=== PATIENT | male | born 1970 | race Caucasian/White ===

== ENCOUNTER 2020-12-04 06:24 | Inpatient (IN) | payer SELFPAY ==
[2020-12-04] VITALS (10 sets, daily range): BP systolic 140–167; BP diastolic 53–110; PULSE 71–90; RESP 14–20; TEMP 36.6–37.2; O2SAT 97–100; BMI 33.0
--- NOTE | ~2020-12-04 | CT_ITS ---
EXAMINATION: CT abdomen pelvis w con DATE: 12/04/2020 08:14 INDICATION: Generalized abdominal pain. TECHNIQUE: Computed tomography (CT) of the abdomen and pelvis was performed with 100 mL Omnipaque 350 intravenous contrast. Automated exposure control and iterative reconstruction technique were employe d. The dose-length product was 1074.57 mGy-cm. COMPARISON: None. FINDINGS: The visualized portions of the lung bases are clear without pneumonia or pleural effusion. The heart size is normal. No pericardial effusion. The liver, gallbladder, spleen, adrenal glands, an d right kidney are normal. There is a 13 mm cyst in left kidney. There is fat stranding around the ta il of the pancreas, consistent with acute interstitial pancreatitis. There are no dilated loops of jacek wel. The appendix is normal. There is a left inguinal hernia containing fat. There are no pathologica lly enlarged lymph nodes. There is no free intraperitoneal fluid. There is severe lower lumbar spondy losis. There is mild thoracic spondylosis. There is mild chronic anterior wedging of multiple lower t horacic vertebral bodies. IMPRESSION: 1. Acute interstitial pancreatitis. 2. Left inguinal hernia containing fat. Reviewed, dictated and finalized at location D.
[2020-12-04 07:05] LABS: Basophils Percent Auto 0.1 % (0.2-1.2); Eosinophils Absolute Auto 0.1 K/mm3 (0-0.3); Eosinophils Percent Auto 0.7 % (0-4.4); Hematocrit 44.3 % (42.0-52.0); Hemoglobin 15.2 g/dL (14.0-18.0); Immature Granulocyte Absolute 0.04 K/mm3 (0.00-0.031); Immature Granulocyte Percent A 0.3 % (0-0.5); Lymphocytes Absolute Auto 1.03 K/mm3 (0.9-3.2); Mean Corpuscular HGB Conc 34.3 g/dl (32-36); Mean Corpuscular Hemoglobin 30.6 pg (26-34); Mean Corpuscular Volume 89.3 fl (80-100); Mean Platelet Volume 8.6 fl (7.4-10.4); Monocytes Absolute Auto 0.9 K/mm3 (0.1-0.6); Monocytes Percent Auto 7.4 % (2.6-8.5); Neutrophils Absolute Auto 9.5 K/mm3 (1.3-6.7); Neutrophils Percent Auto 82.5 % (45.5-73.1); Platelet Count Result 287 k/mm3 (150-375); Red Blood Count 4.96 M/mm3 (4.6-6.20); Red Cell Distribution Width 12.4 % (11.5-14.5); White Blood Count 11.5 K/mm3 (4.5-10.0)
--- NOTE | 2020-12-04 07:07 | ED.ABDPAIN ---
HPI - Abdominal Pain General Chief Complaint: Abdominal Pain Stated Complaint: abd pain/bloating Time Seen by Provider: 12/04/20 07:00 History of Present Illness HPI narrative: 50 yop male w/ no known medical history presents to the ED c/o Abdominal pain. He has had moderate generalized abdominal pain since yesterday. Worse overnight. Associated with nausea and bloating. He reports a few loose stools yesterday. No prior surgeries. He does not drink alcohol. Related Data Allergies Allergy/AdvReac Type Severity Reaction Status Date / Time No Known Allergies Allergy Verified 12/04/20 06:48 Review of Systems Review of Systems: All systems reviewed & are unremarkable except as noted in HPI and below Constitutional: Constitutional: Denies fever(s) Cardiovascular: Cardiovascular: Denies chest pain Respiratory: Respiratory: Denies dyspnea Genitourinary: Genitourinary: Denies hematuria and Denies dysuria Neurologic: Denies dizziness and Denies weakness [facility] Social History Social History (Updated 12/04/20 @ 10:49 by Jose Cruz Garrett MD) Smoking status: Never smoker Alcohol intake: never Exam Const: General: no acute distress and alert Orientation/consciousness: patient oriented x3 HENMT: Head: normal to inspection Neck: Neck: normal visual inspection Chest: Chest palpation & inspection: no tenderness Resp: Effort & Inspection: normal respiratory effort Auscultation: clear to auscultation bilaterally, no rales, no rhonchi and no wheezes Cardio: Jugular venous distension: no JVD Rate: regular rate Rhythm: regular rhythm Heart sounds: no murmurs GI: Inspection: non-distended GI Palp: Yes Soft to palpation, Yes Tenderness to palpation present (GI) (diffuse, mild), No Guarding due to palpation present (GI) and No Rebound tenderness present Skin: General skin exam: normal color Neuro: General: patient oriented x3 and moves all extremities Speech: normal speech Extrem: General: normal to inspection and no edema Psych: Appearance: well kempt Affect: normal affect Course Vital Signs Vital signs: Vital Signs Temperature 36.9 C 12/04/20 06:36 Pulse Rate 82 12/04/20 06:36 Respiratory Rate 16 12/04/20 06:36 Blood Pressure 155/110 H 12/04/20 06:36 Pulse Oximetry 97 12/04/20 06:36 Temperature 36.9 C 12/04/20 06:36 Pulse Rate 71 12/04/20 09:50 Respiratory Rate 20 12/04/20 09:50 Blood Pressure 157/106 H 12/04/20 09:50 Pulse Oximetry 100 12/04/20 09:50 MDM - Abdominal Pain MDM Narrative Medical decision making narrative: Acute pancreatitis on CT. Lipase normal. Denies alcohol use. Triglycerides normal. Dr. Aparicio will admit. Differential Diagnosis Differential diagnosis: Likely acute appendicitis, constipation, diverticulitis and pancreatitis Medical Records Attestation: I reviewed the patient's medical records. Lab Data Attestation: I reviewed the patient's lab results. Result diagrams: 12/04/20 06:58 12/04/20 06:58 Labs: Lab Results 12/04/20 12/04/20 12/04/20 Range/Units 06:58 06:58 06:58 WBC 11.5 H (4.5-10.0) K/mm3 RBC 4.96 (4.6-6.20) M/mm3 Hgb 15.2 (14.0-18.0) g/dL Hct 44.3 (42.0-52.0) % MCV 89.3 (80-100) fl MCH 30.6 (26-34) pg MCHC 34.3 (32-36) g/dl RDW 12.4 (11.5-14.5) % Plt Count 287 (150-375) k/mm3 MPV 8.6 (7.4-10.4) fl Immature Gran % (Auto) 0.3 (0-0.5) % Neut % (Auto) 82.5 H (45.5-73.1) % Lymph % (Auto) 9.0 L (18.3-44.2) % [place] % (Auto) 7.4 (2.6-8.5) % Eos % (Auto) 0.7 (0-4.4) % Baso % (Auto) 0.1 L (0.2-1.2) % Lymph # (Auto) 1.03 (0.9-3.2) K/mm3 [place] # (Auto) 0.9 H (0.1-0.6) K/mm3 Eos # (Auto) 0.1 (0-0.3) K/mm3 Baso # (Auto) 0.0 (0.0-0.1) K/mm3 Abs Immat Gran (auto) 0.04 H (0.00-0.031) K/mm3 Absolute Neuts (auto) 9.5 H (1.3-6.7) K/mm3 Absolute Nucleated RBC 0.0 (0.0-0.012) K/mm3 Nucleated RBC % 0
[2020-12-04 07:21] LABS: Alanine Aminotransferase 30 U/L (4-50); Albumin Level 4.2 g/dL (3.5-5.1); Alkaline Phosphatase 90 U/L (38-126); Anion Gap 7 mmol/L (8-16); Aspartate Amino Transferase 26 U/L (17-59); Bilirubin,Total 0.7 mg/dL (0.2-1.3); Blood Urea Nitrogen 14 mg/dL (9-20); Calcium 9.2 mg/dL (8.4-10.2); Carbon Dioxide 26 mmol/L (22-30); Chloride 106 mmol/L (98-107); Estimated CRCL calculation 114 ml/min; Estimated Glomerular Filt Rate > 60; Glucose 128 mg/dL (65-110); Lipase 181 U/L (23-300); Potassium 3.6 mmol/L (3.4-5.0); Sodium 139 mmol/L (137-145)
[2020-12-04 07:28] LABS: Add Urine Microscopic? YES; Appearance Urine Clear (Clear); Bilirubin Urine Negative (Negative); Blood Urine Negative (Negative); Color Urine Yellow (Yellow); Glucose Urine UA Negative (Negative); Ketones Urine Negative (Negative); Leukocyte Esterase Ur Negative LEU/UL (Negative); Nitrate Urine Negative (Negative); Protein Urine 1+ mg/dL (Negative); RBC Urine 0-2 /hpf (0-2); Urobilinogen Urine Negative mg/dL (<2.0); WBC Urine 0-3 /hpf
[2020-12-04 07:37] LABS: Specific Grav Ur 1.032 (1.001-1.035)
[2020-12-04 10:27] LABS: Cholesterol 185 mg/dL (0-200); HDL Direct 35 mg/dL; Triglycerides 110 mg/dL (<150)
[2020-12-04 10:38] LABS: LDL Cholesterol Direct 103 mg/dL
--- NOTE | 2020-12-04 11:45 | ADMGEN ---
This patient, Sudhakar Jefferson, was admitted to [facility] Surg Room 311-01. Patient/family oriented to hospital policies and general routines including ID bracelet, bed and alarms, visiting hours, pain management, procedures, bathroom and other care routines, personal items, smoking policy, room service/diet, and visiting hours. Information on how to activate the Rapid Response Team has been discussed. Patient/Family are encouraged to report perceived risks to care and to ask questions if they do not understand what they are told or what they should do.
[2020-12-04] MEDS: SODIUM CHLORIDE 0.9% IV 1,000 ML 200 ML IV CONT ×2 (12:29→18:36)
--- NOTE | 2020-12-04 13:25 | PM.IMHP ---
H&P: HPI History of Present Illness Date/Time: 12/04/20 13:25 Chief Complaint: Abdominal pain. Narrative: This is a 50-year-old male, reportedly healthy however he has not seen a physician for quite some time, who presented to the emergency department earlier today via private vehicle from home for evaluation of abdominal pain. He developed pressure-like at times aching discomfort in his upper abdomen sometime yesterday which he originally attributed to constipation however he had a loose bowel movement yesterday afternoon. He has since started having loose stools. The pain does not radiate aside from somewhat up into the left upper quadrant. He gives no significant aggravating or alleviating factors. In addition to the abdominal discomfort he has had sweats and nausea. CT of the abdomen and pelvis showed acute interstitial pancreatitis and he is being admitted in this setting. He has no prior history of pancreatitis. He has no known history of gallstones or high triglycerides. He does not drink alcohol. No family history of pancreatitis. Review of Systems Review of Systems: 12 systems were reviewed with pertinent positives and negatives as per HPI. He has not had a fever. No recent cold or flu symptoms. He has some rhinorrhea secondary to seasonal rhinitis. He denies chest pain or shortness of breath. No vomiting. No melena or hematochezia. No mucus in the stool. Except as documented, all other systems were reviewed and are negative. [facility] Past Medical History Medical History No significant past medical history Surgical History Surgical History No history of previous surgery Family History Family History (Updated 12/04/20 @ 23:45 by Tyesha Travis PA-C) Other No significant family history Social History Social History (Updated 12/04/20 @ 23:46 by Tyesha Travis PA-C) Social History: The patient lives in [place]. Works at [employer]. Lifelong nonsmoker. No alcohol or illicit substance abuse. Surrogate decision maker: Mejia Jefferson, father. Code status: Full code. Meds Home Medications and Allergies Home Medications Medication Instructions Recorded Confirmed Type fexofenadine-pseudoephedrine 1 tablet PO QAM PRN 12/04/20 12/04/20 History [Jessie-D 24 Hour] Allergies Allergy/AdvReac Type Severity Reaction Status Date / Time codeine AdvReac Nausea Verified 12/04/20 12:15 Vital Signs Vital Signs - 24 hr 12/04/20 06:36 12/04/20 07:31 12/04/20 08:52 Temperature 98.5 F Pulse Rate 82 74 81 Respiratory Rate 16 20 20 Blood Pressure 155/110 H 158/104 H 167/104 H Pulse Oximetry 97 98 100 12/04/20 09:50 12/04/20 11:14 12/04/20 13:15 Temperature 97.8 F Pulse Rate 71 74 76 Respiratory Rate 20 20 14 Blood Pressure 157/106 H 153/99 H 157/108 H Pulse Oximetry 100 98 98 Exam Narrative: General: Moderately ill-appearing male supine in bed. Weight: 113.5 kg. BMI: 33.0. HEENT: Normocephalic, atraumatic. PERRL, EOMI. Sclerae anicteric. Tacky mucous membranes. Neck: Supple. Respiratory: Lungs are clear to auscultation bilaterally. Cardiovascular: Regular rate and rhythm with S1-S2. Gastrointestinal: Abdomen is soft and nondistended with positive bowel sounds. He is tender to palpation in the left upper quadrant. No voluntary guarding or rebound tenderness peer Skin: Warm and slightly diaphoretic. Extremities: No cyanosis, clubbing, or edema. Radial and pedal pulses intact. Neurological: Alert. Cranial nerves 2-12 are grossly intact. Speech is clear. No facial asymmetry. No gross focal deficits to casual conversation. Psychiatric: Appropriate mood and affect. H&P: Results Labs Labs: Short CBC 12/04/20 Range/Units 06:58 WBC 11.5 H (4.5-10.0) K/mm3 Hgb 15.2 (14.0-18.0) g/dL Hct 44.3 (42.0-52.0) % Plt Count 287 (150-375
[2020-12-04] MEDS: ONDANSETRON INJ 4 MG/2 ML VIAL IV PUSH ×2 (14:48→23:18)
[2020-12-04] MEDS: MORPHINE SULFATE (*CRX) 4 MG/ML INJ IV PUSH ×2 (16:41→20:20)
[2020-12-04] MEDS: amLODIPine BESYLATE 5 MG TABLET PO (16:42)
[2020-12-04 18:58] LABS: Hemoglobin A1C 5.6 % (<5.7)
[2020-12-04] MEDS: LORATADINE/PSEUDOEPHEDRINE (*CRX) 10/240 MG TABLET ER 24 HR 1 TAB PO (23:17)
[2020-12-05] MEDS: SODIUM CHLORIDE 0.9% IV 1,000 ML 200 ML IV CONT ×2 (01:05→06:56)
[2020-12-05 06:00] VITALS: BP 150/95; PULSE 84; RESP 20; TEMP 37.5; O2SAT 98
[2020-12-05 06:57] LABS: Hemoglobin 13.8 g/dL (14.0-18.0); Mean Corpuscular HGB Conc 34.5 g/dl (32-36); Mean Corpuscular Hemoglobin 30.5 pg (26-34); Mean Corpuscular Volume 88.5 fl (80-100); Mean Platelet Volume 8.8 fl (7.4-10.4); Platelet Count Result 278 k/mm3 (150-375); Red Blood Count 4.52 M/mm3 (4.6-6.20); Red Cell Distribution Width 12.4 % (11.5-14.5); White Blood Count 12.5 K/mm3 (4.5-10.0)
[2020-12-05 07:15] LABS: Alanine Aminotransferase 24 U/L (4-50); Albumin Level 3.7 g/dL (3.5-5.1); Alkaline Phosphatase 79 U/L (38-126); Anion Gap 8 mmol/L (8-16); Aspartate Amino Transferase 19 U/L (17-59); Bilirubin,Total 1.2 mg/dL (0.2-1.3); Blood Urea Nitrogen 8 mg/dL (9-20); Calcium 8.6 mg/dL (8.4-10.2); Carbon Dioxide 23 mmol/L (22-30); Chloride 105 mmol/L (98-107); Estimated CRCL calculation 128 ml/min; Estimated Glomerular Filt Rate > 60; Glucose 108 mg/dL (65-110); Lipase 39 U/L (23-300); Magnesium 1.8 mg/dL (1.6-2.3); Potassium 3.8 mmol/L (3.4-5.0); Sodium 136 mmol/L (137-145)
[2020-12-05] MEDS: amLODIPine BESYLATE 5 MG TABLET PO (09:22)
--- NOTE | 2020-12-05 11:22 | PM.IMPN ---
Progress Note: A&P Assessment and Plan (1) Acute pancreatitis: Code(s): K85.90 - Acute pancreatitis without necrosis or infection, unspecified Status: Acute Assessment and Plan: Precipitating etiology unclear as he is on no medication (aside from occasional Jessie) and denies drinking alcohol recently. Gallbladder was unremarkable on imaging. Triglycerides were 110. Continue bowel rest and IV fluid rehydration. Analgesics available as needed. If his symptoms continue to improve will initiate clear liquid diet (2) Elevated blood pressure reading: Code(s): R03.0 - Elevated blood-pressure reading, without diagnosis of hypertension Status: Acute Assessment and Plan: Increase amlodipine to 10 mg daily. (3) Elevated random blood glucose level: Code(s): R73.09 - Other abnormal glucose Status: Acute Assessment and Plan: Hemoglobin A1c 5.6, outpatient periodic monitoring (4) Left inguinal hernia: Code(s): K40.90 - Unilateral inguinal hernia, without obstruction or gangrene, not specified as recurrent Status: Acute Assessment and Plan: Incidental finding on imaging. No acute issues. Unknown to the patient prior to today. We discussed possible complications and what he should do should he start having pain. Subjective Date/time seen: 12/05/20 11:22 Persistent abdominal pain but slightly improved. Hemodynamically stable. Afebrile. No N/V. Exam Narrative: Gen: Alert, NAD Abd: Soft, mild diffuse TTP Heart: RRR Lungs: CTAB Ext: No lower extremity edema Objective Data Vital Signs Vital Signs: Vital Signs - 24 hr 12/04/20 13:15 12/04/20 13:43 12/04/20 14:00 Temperature 97.8 F 98.4 F Pulse Rate 76 80 Respiratory Rate 14 14 Blood Pressure 157/108 H 157/108 H 165/110 H Pulse Oximetry 98 99 12/04/20 20:00 12/04/20 22:00 12/05/20 06:00 Temperature 98.9 F 99.5 F Pulse Rate 90 90 84 Respiratory Rate 20 20 20 Blood Pressure 140/53 L 150/95 H Pulse Oximetry 97 97 98 Intake/Output Intake/Output: Intake & Output 12/02/20 12/03/20 12/04/20 12/05/20 23:59 23:59 23:59 23:59 Intake Total 1340 1999 Balance 1340 1999 Meds/Results Medications: Active Medications Generic Name Dose Route Start Last Admin Trade Name Freq PRN Reason Stop Dose Admin Amlodipine Besylate 5 mg 12/04/20 15:45 12/05/20 09:22 Amlodipine Besylate 5 Mg Tablet PO 5 mg QAM EDWARD Administration Dextrose 12.5 gm 12/04/20 13:33 Dextrose 50% 25 Gm/50 Ml Syringe IV PUSH PRN PRN Hypoglycemia Protocol Glucagon 1 mg 12/04/20 13:33 Glucagon For Inj 1 Mg Vial IM PRN PRN Hypoglycemia Protocol Glucose 15 gm 12/04/20 13:33 Glucose Oral Gel 15 Gm Of Glucse In 37.5 Gm Tube PO PRN PRN Hypoglycemia Protocol Sodium Chloride 1,000 mls @ 200 mls/hr 12/04/20 10:05 12/05/20 06:56 Normal Saline Iv IV CONT 200 mls/hr .Q5H EDWARD Administration Dextrose 1,000 mls @ 100 mls/hr 12/04/20 13:33 Dextrose 5% 1,000 Ml IVPB PRN PRN Hypoglycemia Protocol Loratadine/Pseudoephedrine Sulfate 1 tab 12/04/20 22:32 12/04/20 23:17 Loratadine/Pseudoephedrine (*Crx) 10/240 Mg Tablet Er 24 Hr PO 1 tab QAM PRN Administration allergies Morphine Sulfate 4 mg 12/04/20 10:05 12/04/20 20:20 Morphine Sulfate (*Crx) 4 Mg/Ml Inj IV PUSH 4 mg Q2H PRN Administration Pain Rated 7-10 Ondansetron HCl 4 mg 12/04/20 10:05 12/04/20 23:18 Ondansetron Inj 4 Mg/2 Ml Vial IV PUSH 4 mg Q4H PRN Administration Nausea Radiology Results: ITS Impressions Abdomen/Pelvis CT 12/04/20 08:15 IMPRESSION: 1. Acute interstitial pancreatitis. 2. Left inguinal hernia containing fat. Labs Labs: Laboratory Results - last 24 hr 12/04/20 12/05/20 12/05/20 14:24 06:30 06:30 WBC 12.5 H RBC 4.52 L Hgb 13.8 L Hct 40.0 L MCV 88.5 MCH
[2020-12-05] MEDS: ACETAMINOPHEN 325 MG TABLET 650 MG PO (13:25)
[2020-12-05 14:00] VITALS: BP 164/108; PULSE 81; RESP 18; TEMP 37.1; O2SAT 100
[2020-12-05] MEDS: SODIUM CHLORIDE 0.9% IV 1,000 ML 100 ML IV CONT (17:03)
[2020-12-05 17:33] VITALS: O2SAT 94
[2020-12-05 20:00] VITALS: PULSE 83; RESP 18; O2SAT 98
[2020-12-05 22:00] VITALS: BP 146/95; PULSE 83; RESP 18; TEMP 36.6; O2SAT 98
[2020-12-06] MEDS: SODIUM CHLORIDE 0.9% IV 1,000 ML 100 ML IV CONT (03:57)
[2020-12-06 05:39] VITALS: BP 149/94; PULSE 73; RESP 18; TEMP 36.6; O2SAT 99
[2020-12-06 08:11] LABS: Anion Gap 8 mmol/L (8-16); Blood Urea Nitrogen 8 mg/dL (9-20); Carbon Dioxide 25 mmol/L (22-30); Chloride 103 mmol/L (98-107); Estimated CRCL calculation 115 ml/min; Estimated Glomerular Filt Rate > 60; Glucose 99 mg/dL (65-110); Potassium 3.8 mmol/L (3.4-5.0); Sodium 136 mmol/L (137-145)
[2020-12-06] MEDS: amLODIPine BESYLATE 5 MG TABLET 10 MG PO (08:12)
--- NOTE | 2020-12-06 12:56 | PM.IMPN ---
Progress Note: A&P Assessment and Plan (1) Acute pancreatitis: Code(s): K85.90 - Acute pancreatitis without necrosis or infection, unspecified Status: Acute Assessment and Plan: Precipitating etiology unclear as he is on no medication (aside from occasional Jessie) and denies drinking alcohol recently. Gallbladder was unremarkable on imaging. Triglycerides were 110. Analgesics as needed. Full liquid diet today and advance as tolerated D/C IVF as his intake is increasing (2) Elevated blood pressure reading: Code(s): R03.0 - Elevated blood-pressure reading, without diagnosis of hypertension Status: Acute Assessment and Plan: Increase amlodipine to 10 mg daily, monitor (3) Elevated random blood glucose level: Code(s): R73.09 - Other abnormal glucose Status: Acute Assessment and Plan: Hemoglobin A1c 5.6, outpatient periodic monitoring (4) Left inguinal hernia: Code(s): K40.90 - Unilateral inguinal hernia, without obstruction or gangrene, not specified as recurrent Status: Acute Assessment and Plan: Incidental finding on imaging. No acute issues. Unknown to the patient prior to today. We discussed possible complications and what he should do should he start having pain. Subjective Date/time seen: 12/06/20 12:56 Feels better this AM. Reports no N/V overnight. Abdominal pain is improved. Has tolerated clear liquids well. Review of Systems Review of Systems: All systems reviewed & are unremarkable except as noted in HPI and below Exam Narrative: Gen: Alert, NAD Abd: Soft, NT, ND Heart: RRR Lungs: CTAB Ext: No lower extremity edema Objective Data Vital Signs Vital Signs: Vital Signs - 24 hr 12/05/20 14:00 12/05/20 17:33 12/05/20 20:00 Temperature 98.7 F Pulse Rate 81 83 Respiratory Rate 18 18 Blood Pressure 164/108 H Pulse Oximetry 100 94 98 12/05/20 22:00 12/06/20 05:39 Temperature 97.8 F 97.8 F Pulse Rate 83 73 Respiratory Rate 18 18 Blood Pressure 146/95 H 149/94 H Pulse Oximetry 98 99 Intake/Output Intake/Output: Intake & Output 12/03/20 12/04/20 12/05/20 12/06/20 23:59 23:59 23:59 23:59 Intake Total 1340 4200 2080 Balance 1340 4200 2080 Meds/Results Medications: Active Medications Generic Name Dose Route Start Last Admin Trade Name Freq PRN Reason Stop Dose Admin Acetaminophen 650 mg 12/05/20 12:32 12/05/20 13:25 Acetaminophen 325 Mg Tablet PO 650 mg Q6H PRN Administration Mild Pain (1-3) or Fever Amlodipine Besylate 10 mg 12/06/20 09:00 12/06/20 08:12 Amlodipine Besylate 5 Mg Tablet PO 10 mg QAM EDWARD Administration Dextrose 12.5 gm 12/04/20 13:33 Dextrose 50% 25 Gm/50 Ml Syringe IV PUSH PRN PRN Hypoglycemia Protocol Enoxaparin Sodium 40 mg 12/06/20 09:00 12/06/20 08:14 Enoxaparin 40 Mg/0.4 Ml Syringe SUB-Q Not Given DAILY EDWARD Glucagon 1 mg 12/04/20 13:33 Glucagon For Inj 1 Mg Vial IM PRN PRN Hypoglycemia Protocol Glucose 15 gm 12/04/20 13:33 Glucose Oral Gel 15 Gm Of Glucse In 37.5 Gm Tube PO PRN PRN Hypoglycemia Protocol Sodium Chloride 1,000 mls @ 100 mls/hr 12/04/20 10:05 12/06/20 03:57 Normal Saline Iv IV CONT 100 mls/hr .Q10H EDWARD Administration Dextrose 1,000 mls @ 100 mls/hr 12/04/20 13:33 Dextrose 5% 1,000 Ml IVPB PRN PRN Hypoglycemia Protocol Loratadine/Pseudoephedrine Sulfate 1 tab 12/04/20 22:32 12/04/20 23:17 Loratadine/Pseudoephedrine (*Crx) 10/240 Mg Tablet Er 24 Hr PO 1 tab QAM PRN Administration allergies Morphine Sulfate 4 mg 12/04/20 10:05 12/04/20 20:20 Morphine Sulfate (*Crx) 4 Mg/Ml Inj IV PUSH 4 mg Q2H PRN Administration Pain Rated 7-10 Ondansetron HCl 4 mg 12/04/20 10:05 12/04/20 23:18 Ondansetron Inj 4 Mg/2 Ml Vial IV PUSH 4 mg Q4H PRN Administration Nausea Radiology R
[2020-12-06 15:06] VITALS: BP 126/91; PULSE 86; RESP 14; TEMP 37.1; O2SAT 98
[2020-12-06 20:00] VITALS: PULSE 73; RESP 18; O2SAT 100
[2020-12-06 21:55] VITALS: BP 141/101; PULSE 78; RESP 18; TEMP 36.2; O2SAT 98
[2020-12-07 06:00] VITALS: BP 126/81; PULSE 73; RESP 18; TEMP 36.3; O2SAT 100
[2020-12-07 06:57] LABS: Hematocrit 43.7 % (42.0-52.0); Hemoglobin 15.2 g/dL (14.0-18.0); Mean Corpuscular HGB Conc 34.8 g/dl (32-36); Mean Corpuscular Hemoglobin 30.5 pg (26-34); Mean Corpuscular Volume 87.8 fl (80-100); Mean Platelet Volume 8.8 fl (7.4-10.4); Platelet Count Result 334 k/mm3 (150-375); Red Blood Count 4.98 M/mm3 (4.6-6.20); Red Cell Distribution Width 12.3 % (11.5-14.5); White Blood Count 7.3 K/mm3 (4.5-10.0)
[2020-12-07 07:16] LABS: Anion Gap 9 mmol/L (8-16); Blood Urea Nitrogen 10 mg/dL (9-20); Calcium 9.5 mg/dL (8.4-10.2); Carbon Dioxide 27 mmol/L (22-30); Chloride 101 mmol/L (98-107); Estimated CRCL calculation 104 ml/min; Estimated Glomerular Filt Rate > 60; Glucose 94 mg/dL (65-110); Potassium 4.5 mmol/L (3.4-5.0); Sodium 137 mmol/L (137-145)
[2020-12-07] MEDS: amLODIPine BESYLATE 5 MG TABLET 10 MG PO (08:57)
[2020-12-07 09:00] VITALS: PULSE 74; RESP 18; O2SAT 100
--- NOTE | 2020-12-07 10:51 | PM.IMPN ---
Progress Note: A&P Assessment and Plan (1) Acute pancreatitis: Code(s): K85.90 - Acute pancreatitis without necrosis or infection, unspecified Status: Acute Assessment and Plan: Precipitating etiology unclear as he is on no medication (aside from occasional Jessie) and denies drinking alcohol recently. Gallbladder was unremarkable on imaging. Triglycerides were 110. Analgesics as needed. Continue advancing diet, may be able to tolerate solids this afternoon. (2) Elevated blood pressure reading: Code(s): R03.0 - Elevated blood-pressure reading, without diagnosis of hypertension Status: Acute Assessment and Plan: Will continue with amlodipine 10 daily. (3) Left inguinal hernia: Code(s): K40.90 - Unilateral inguinal hernia, without obstruction or gangrene, not specified as recurrent Status: Acute Assessment and Plan: Incidental finding on imaging. No acute issues. Unknown to the patient prior to this visit. He does state that he has some pain in the left abdomen with stretching or heavy exertion, may be related to hernia. No signs of strangulation, unlikely be addressed as outpatient with elective surgery. Continue to monitor for alarming symptoms. Subjective Date/time seen: 12/07/20 10:51 Interval history: no acute distress, ambulating in room, tolerating clear liquid diet, n nausea or vomiting Review of Systems Review of Systems: All systems reviewed & are unremarkable except as noted in HPI and below Exam Const: General: no acute distress Neck: Neck: no JVD Resp: Effort & Inspection: normal respiratory effort Auscultation: clear to auscultation bilaterally Cardio: Rate: regular rate Rhythm: regular rhythm GI: Inspection: non-distended GI Palp: Yes Soft to palpation, No Firmness to palpation present (GI), No Tenderness to palpation present (GI) and No Guarding due to palpation present (GI) Auscultation: normal bowel sounds Neuro: General: gait normal Speech: normal speech Objective Data Vital Signs Vital Signs: Vital Signs - 24 hr 12/06/20 15:06 12/06/20 20:00 12/06/20 21:55 Temperature 98.8 F 97.1 F L Pulse Rate 86 73 78 Respiratory Rate 14 18 18 Blood Pressure 126/91 H 141/101 H Pulse Oximetry 98 100 98 12/07/20 06:00 Temperature 97.4 F L Pulse Rate 73 Respiratory Rate 18 Blood Pressure 126/81 Pulse Oximetry 100 Intake/Output Intake/Output: Intake & Output 12/04/20 12/05/20 12/06/20 12/07/20 23:59 23:59 23:59 23:59 Intake Total 1340 4200 4310 750 Balance 1340 4200 4310 750 Meds/Results Medications: Active Medications Generic Name Dose Route Start Last Admin Trade Name Freq PRN Reason Stop Dose Admin Acetaminophen 650 mg 12/05/20 12:32 12/05/20 13:25 Acetaminophen 325 Mg Tablet PO 650 mg Q6H PRN Administration Mild Pain (1-3) or Fever Amlodipine Besylate 10 mg 12/06/20 09:00 12/07/20 08:57 Amlodipine Besylate 5 Mg Tablet PO 10 mg QAM EDWARD Administration Dextrose 12.5 gm 12/04/20 13:33 Dextrose 50% 25 Gm/50 Ml Syringe IV PUSH PRN PRN Hypoglycemia Protocol Enoxaparin Sodium 40 mg 12/06/20 09:00 12/07/20 08:59 Enoxaparin 40 Mg/0.4 Ml Syringe SUB-Q Not Given DAILY EDWARD Glucagon 1 mg 12/04/20 13:33 Glucagon For Inj 1 Mg Vial IM PRN PRN Hypoglycemia Protocol Glucose 15 gm 12/04/20 13:33 Glucose Oral Gel 15 Gm Of Glucse In 37.5 Gm Tube PO PRN PRN Hypoglycemia Protocol Dextrose 1,000 mls @ 100 mls/hr 12/04/20 13:33 Dextrose 5% 1,000 Ml IVPB PRN PRN Hypoglycemia Protocol Loratadine/Pseudoephedrine Sulfate 1 tab 12/04/20 22:32 12/04/20 23:17 Loratadine/Pseudoephedrine (*Crx) 10/240 Mg Tablet Er 24 Hr PO 1 tab QAM PRN Administration allergies Morphine Sulfate 4 mg 12/04/20 10:05 12/04/20 20:20 Morphine Sulfate (*Crx) 4 Mg/Ml Inj IV PUSH 4 mg Q2H PRN Administration
[2020-12-07 14:00] VITALS: BP 149/97; PULSE 74; RESP 18; TEMP 36.9; O2SAT 100
[2020-12-07 20:00] VITALS: O2SAT 100
[2020-12-07 22:00] VITALS: BP 149/97; PULSE 70; RESP 20; TEMP 36.8; O2SAT 97
[2020-12-08 06:00] VITALS: BP 138/84; PULSE 74; RESP 20; TEMP 36.8; O2SAT 100
[2020-12-08 06:52] LABS: Basophils Percent Auto 0.3 % (0.2-1.2); Eosinophils Absolute Auto 0.3 K/mm3 (0-0.3); Eosinophils Percent Auto 4.6 % (0-4.4); Hematocrit 43.3 % (42.0-52.0); Hemoglobin 15.2 g/dL (14.0-18.0); Immature Granulocyte Absolute 0.02 K/mm3 (0.00-0.031); Immature Granulocyte Percent A 0.3 % (0-0.5); Lymphocytes Percent Auto 18.9 % (18.3-44.2); Mean Corpuscular HGB Conc 35.1 g/dl (32-36); Mean Corpuscular Hemoglobin 30.6 pg (26-34); Mean Corpuscular Volume 87.3 fl (80-100); Monocytes Absolute Auto 0.6 K/mm3 (0.1-0.6); Monocytes Percent Auto 10.3 % (2.6-8.5); Neutrophils Absolute Auto 3.8 K/mm3 (1.3-6.7); Neutrophils Percent Auto 65.6 % (45.5-73.1); Platelet Count Result 347 k/mm3 (150-375); Red Blood Count 4.96 M/mm3 (4.6-6.20); Red Cell Distribution Width 12.2 % (11.5-14.5); White Blood Count 5.8 K/mm3 (4.5-10.0)
[2020-12-08 07:20] LABS: Alanine Aminotransferase 29 U/L (4-50); Alkaline Phosphatase 79 U/L (38-126); Anion Gap 6 mmol/L (8-16); Aspartate Amino Transferase 26 U/L (17-59); Bilirubin,Total 0.8 mg/dL (0.2-1.3); Blood Urea Nitrogen 14 mg/dL (9-20); Calcium 9.2 mg/dL (8.4-10.2); Carbon Dioxide 26 mmol/L (22-30); Chloride 107 mmol/L (98-107); Estimated CRCL calculation 103 ml/min; Estimated Glomerular Filt Rate > 60; Glucose 103 mg/dL (65-110); Magnesium 2.2 mg/dL (1.6-2.3); Phosphorus 3.7 mg/dL (2.5-4.5); Potassium 3.7 mmol/L (3.4-5.0); Sodium 139 mmol/L (137-145)
[2020-12-08 08:00] VITALS: O2SAT 100
[2020-12-08] MEDS: amLODIPine BESYLATE 5 MG TABLET 10 MG PO (08:10)
--- NOTE | 2020-12-08 16:01 | PM.DS ---
DS: Admitting Diagnosis Admitting Diagnosis abdominal pain DS: Discharge Diagnosis Discharge Diagnosis (1) Acute pancreatitis: Code(s): K85.90 - Acute pancreatitis without necrosis or infection, unspecified Status: Acute DS: Summary Hospital Course Reason for hospitalization: pancreatitis Hospital Course: 50 year old male, in good health presenting with pressure like epigastric abdominal pain. No significant exacerbating or alleviating factors. CT was obtained showing acute interstitial pancreatitis, and labwork consistent with this diagnosis. Clinical picture consistent with uncomplicated case, ie no sustained fever, persistent intractable pain, rebound tenderness, melena. Patient treatd with bowel rest, IV hydration, and pain control. Slowly resumed diet. US did not imply presence of gallstones. DIscharged with close followup, and discussed potential of complications including pseudocyst formation. Status at Discharge Functional status at discharge: independent ambulation Overall status at discharge: patient is progressing back to baseline Time Spent with Patient Time attestation: Total time spent providing and/or coordinating discharge services: Time spent: Less than 30 minutes Exam Const: General: no acute distress Neck: Neck: no JVD Resp: Effort & Inspection: normal respiratory effort Auscultation: clear to auscultation bilaterally Cardio: Rate: regular rate Rhythm: regular rhythm GI: GI Palp: Yes Soft to palpation and No Tenderness to palpation present (GI) Discharge Plan Discharge Attending physician on discharge: Lidia Salinas Consulting providers: Zak Stephenson ; Tyesha Travis ; Duglas Simmons V. ; Theron Lou Discharging Clinician: Lidia Salinas Patient Disposition: Home, Self-Care Activity: as tolerated Diet: as tolerated Patient Instructions: Antibiotic Form, Pancreatitis (GEN), Low Fat Diet (GEN), Heart Healthy Diet (DC) Stand Alone Forms: General Discharge Information, Work/School Release IP Follow-up/Referrals: Zak Stephenson MD [Physician] - Discharge Medications: New acetaminophen [Mapap (acetaminophen)] 325 mg Tablet 650 mg PO Q6H PRN (Reason: Mild Pain (1-3) Or Fever) 10 Days Qty: 40 RF: 0 amlodipine [Norvasc] 5 mg Tablet 10 mg PO QAM 30 Days Qty: 60 RF: 0 Continued Jessie-D 24 Hour 180-240 mg Tablet Extended Release 24 Hr 1 tablet PO QAM PRN (Reason: allergies) RF: 0 Date of admission: 12/05/20 13:58 Primary Care Provider: PHYSICIAN,[employer] Admitting Provider: Ozzy Jordan Attending physician on admission: Lidia Salinas Condition: Stable Quality VTE Prophylaxis VTE prophylaxis: mechanical ordered
== END 2020-12-08 14:25 | disposition home or self-care (01) | DRG 282 ==
LOC: ANHED 07:08 → ANH3MEDSUR 10:47
PROVIDERS: Emergency Medicine; Internal Medicine Nephrology; Physician Assistant; Admitting Provider Family Medicine; Emergency Provider Emergency Medicine; Visit Provider Internal Medicine
DX: K85.80 Other acute pancreatitis without necrosis or infection (principal); R03.0 Elevated blood-pressure reading, without diagnosis of hypertension; K40.90 Unilateral inguinal hernia, without obstruction or gangrene, not specified as recurrent; R73.09 Other abnormal glucose; Z79.899 Other long term (current) drug therapy
CPT/HCPCS: 36415; 74177; 80048; 80053; 80061; 81001; 83036; 83690; 83735; 84100; 85025; 85027; 96361; 96374; 96375; 96376; 99285; A9270; G0378; G0379; J0131; J2270; J2405; J7030; Q9967

== ENCOUNTER 2024-11-06 11:12 | Emergency (ER) | payer OTHER, SELFPAY ==
[2024-11-06 11:18] VITALS: BP 133/89; PULSE 81; RESP 18; TEMP 36.6; O2SAT 97
--- OUTSIDE RECORDS SUMMARY | 2024-11-06 11:24 | XMS_ITS | Patient Health Record ---
Author Organization [facility] As [employer] [facility] Address [address] [place] [address] Care Team Providers Care Farm Equipment Service Technician Name Role Phone Roneljackromel DE LA O Dinorah Primary Care Provider UnavailKulwinder Arriaga Unavailable [phone] Allergies Allergen (clinical drug ingredient) Drug/Non Drug Allergy documented on EMR Reaction Allergy Type Onset Date Status codeine Codeine Unknown Drug Allergy Active Results Component Value Reference Range Notes UDT Reviewed date:07/29/2024 03:49:29 PM Interpretation: Performing Lab: Notes/Report: THC n 0 - 50 ng/ml Cocaine n 0 - 300 ng/ml Amphetamine n 0 - 1000 ng/ml Buprenorphine (BUP) n 0 - 10 ng/ml Secobarbital (Bar) n 0 - 300 ng/ml Oxazepam (BZO) n 0 - 300 ng/ml 0-hdaqudmted-2,6-wpydfdhi-8,3-diphenylpyrrolidine (ROSALIE P) n 0 - 300 ng/ml Methamphetamine (MET) n 0 - 1000 ng/ml Methylenedioxymethamphetamine (MDMA) n 0 - 500 ng/ml Morphine (MOP 300/HBT2241) n 0 - 300 ng/ml Methadone (MTD) n 0 - 300 ng/ml Phencyclidine (PCP) n 0 - 25 ng/ml Nortriptyline (TCA) n 0 - 1000 ng/ml Oxycodone n 0 - 300 ng/ml Reason For Referral No Information Medications Medication SIG (Take, Route, Frequency, Duration) Notes Start Date End Date Status amLODIPine Besylate 5 MG TAKE 2 TABLETS BY MOUTH IN THE MORNING Oral; Duration: 90 Days Active Atomoxetine HCl 100 MG 1 capsule in the morning Orally Once a day; Duration: 90 days corrected rX 12/29/2024 Active Lisinopril 5 MG TAKE 1 TABLET BY MOUTH ONCE DAILY Oral; Duration: 90 Days Active Social History Tobacco Use: Social History Observation Description Date Details (start date - stop date) Never Smoker NA - NA Sex Assigned At : Social History Observation Description Sex Assigned At Male Tobacco Control (Standard) Question Answer Notes Tobacco use: Nonsmoker AUDIT-C (Standard) Question Answer Notes Did you have a drink containing alcohol in the p ast year? No Section Notes: Occupation: Works At [employer] Tobacco use: Denies Alcohol use: Denies Drug use: Denies Occupation: Works At [employer] Tobacco use: Denies Alcohol use: Denies Drug use: Denies Occupation: Works At [employer] Tobacco use: Denies Alcohol use: Denies Drug use: Denies Occupation: Works At [employer] Tobacco use: Denies Alcohol use: Denies Drug use: Denies Problems Problem Type SNOMED Code ICD Code Onset Dates Problem Status W/U Status Risk Notes Problem Essential hypertension (37909656) Essential (primary) hypertension (I10) Active confirmed Problem ADHD (attention deficit hyperactivity disorder), inattentive type (F90.0) Active confirmed Vital Signs Heart Rate 81 /min 09/30/2024 Height-cm 180.34 cm 09/30/2024 Blood pressure diastolic 81 mm Hg 09/30/2024 Weight-kg 112.04 kg 09/30/2024 Height 71 in 09/30/2024 Blood pressure systolic 119 mm Hg 09/30/2024 Weight 247 lbs 09/30/2024 BMI 34.45 kg/m2 09/30/2024 Encounters Encounter Location Date Provider Diagnosis [employer] [address] [facility] [address] [place] [address] 07/18/2024 Kulwinder Ceja Encounter for screen ing for depression Z13.31 ; Attention deficit hyperactivity disorder (ADHD) F90.9 and Essential (primary) hypertension I10 [employer] [address] [facility] [address] [place] [address] 07/29/2024 Kulwinder Ceja Lack of concentratio n R41.840 [employer] [address] [facility] [address] [place] [address] 08/05/2024 Kulwinder Marcial Essential (primary) hypertension I10 ; ADHD (attention deficit hyperactivity disorder), inattentive type F90.0 ; Encounter for screening for depression Z13.31 and Encounter for screening for cardiovascular disorders Z13.6 [facility] [employer] [address] [facility] [address] [place] [address] 08/26/2024 Kulwinder Marcial Negative depression screening Z13.31 ; ADHD (attention deficit hyperactivity disorder), inattentive type F90.0 ; Encounter for screening for cardiovascular disorders Z13.6 ; Dietary counseling and surveillance Z71.3 and Essential (primary) hypertension I10 [facility] [employer] [address] [facility] [address] [place] [address] 09/30/2024 Kulwinder Marcial ADHD (attention defi cit hyperactivity disorder), inattentive type F90.0 ; Essential (primary) hypertension I10 ; Encounter for screening for cardiovascular disorders Z13.6 and Negative depression screening Z13.31 [facility] [address] [facility] [address] [place] [address] 09/30/2024 Kulwinder Marcial ADHD (attention defi cit hyperactivity disorder), inattentive type F90.0 Assessments Encounter Date Diagnosis (ICD Code) Assessment Notes Treatment Notes Treatment Clinical Notes Section Notes 07/18/2024 Encounter for screening for depression (ICD-10 - Z13.31) 07/18/2024 Attention deficit hyperactivity disorder (ADHD) (ICD-10 - F90.9) 07/29/2024 Lack of concentration (ICD-10 - R41.840) Analysis and Clinical Summary: Sheldon Jefferson Date of : 1970 Age Group: Male 45-54 Assessment Date: July 29, 2024 1. ADHD Screening - ASRS Questionnaire Part A (Predictive): 4 Part B (Supporting): 3 Interpretation: Indicative of ADHD symptoms. Meeting the threshold in Part A suggests significant attention-related challenges likely impacting functioning. 2. Cognitive Marker Summary Markers Outside Typical Range: 3 Planning (Spatial Planning) Response Inhibition (Double Trouble) Sustained Attention (SART) These collectively reflect impairments in executive function, cognitive control, and attention regulation. 3. Cognitive Task Findings Planning (Spatial Planning) Score: 9 Percentile: 15 Interpretation: Below average. May struggle with organizing steps to reach a goal, time management, or project planning. Working Memory (Token Search) Score: 5 Percentile: 27 Interpretation: Low-average working memory. Could manifest as difficulty tracking multiple tasks, following through, or adapting strategies in real-time. Attention (Feature Match) Reaction Time: 3411ms Percentile: 70 Errors: 0 Interpretation: Attention appears sustained and accurate but at a slower pace. No impulsivity noted. Response Inhibition (Double Trouble) Errors: 1 (15th percentile) Interference Ratios and Time: Interference RT: 1.09 (26th percentile) Overall RT: 3799ms (99th percentile) RT Variability: 992ms (70th percentile) Interpretation: Markedly slow inhibitory response and reduced flexibility. Suggests difficulty suppressing automatic responses under conflict, despite low error rate. Sustained Attention (SART) Commission Errors: 6 (22nd percentile) Reaction Time Variability: 129ms (44th percentile) Slowing After Errors: -81ms (10th percentile) Interpretation: Qpiig-[id number]-qylecbrk sustained attention control and minimal behavioral adjustment after mistakes. This suggests reduced self-monitoring and adaptation. 4. Congruency of Findings The ASRS is indicative of ADHD, and the objective cognitive data supports executive function and attention regulation deficits. Although reaction accuracy is intact, performance inefficiencies in planning, inhibition, and flexibility indicate cognitive markers congruent with inattentive and sluggish cognitive tempo features. 5. Recommendations Clinical Actions Confirm with clinical interview, focusing on long-term functional challenges in work, relationships, and daily organization. Consider occupational impact if reports of underperformance or missed deadlines are present. Interventions Medication may be appropriate. Recommend to do routine urine drug screen, frequent follow-up to adjust dose, and monitor changes in blood pressure and weight. Consider behavioral coaching for planning, scheduling, and decision-making routines. Cognitive Exercises Target: Planning: Use apps or activities that require sequencing or time-based challenges (e.g., time-blocking calendars, puzzle-based strategy games). Working Memory: Dual n-back training or activities with increasing memory load (e.g., remembering multiple steps or rules). Inhibition Control: Cognitive control games (e.g., Stroop task variants) and mindfulness-based activities that enhance response awareness. 08/05/2024 Essential (primary) hypertension (ICD-10 - I10) 08/05/2024 ADHD (attention deficit hyperactivity disorder), inattentive type (ICD-10 - F90.0) 08/26/2024 ADHD (attention deficit hyperactivity disorder), inattentive type (ICD-10 - F90.0) 08/26/2024 Negative depression screening (ICD-10 - Z13.31) 09/30/2024 Essential (primary) hypertension (ICD-10 - I10) 09/30/2024 ADHD (attention deficit hyperactivity disorder), inattentive type (ICD-10 - F90.0) Patient reports slight improvement in symptoms after increasing atomoxetine dosage. Considering further increase to 100 mg for additional improvement. Monitoring symptoms and planning repeat ADHD testing. - Continue atomoxetine at 80 mg for now. - Consider increasing dosage to 100 mg if symptoms do not improve further. - Repeat ADHD testing in three months. - Follow up in two months to assess progress. 09/30/2024 ADHD (attention deficit hyperactivity disorder), inattentive type (ICD-10 - F90.0) 08/26/2024 Encounter for screening for cardiovascular disorders (ICD-10 - Z13.6) 09/30/2024 Encounter for screening for cardiovascular disorders (ICD-10 - Z13.6) 07/18/2024 Essential (primary) hypertension (ICD-10 - I10) 08/05/2024 Encounter for screening for depression (ICD-10 - Z13.31) 08/05/2024 Encounter for screening for cardiovascular disorders (ICD-10 - Z13.6) 08/26/2024 Dietary counseling and surveillance (ICD-10 - Z71.3) 09/30/2024 Negative depression screening (ICD-10 - Z13.31) 08/26/2024 Essential (primary) hypertension (ICD-10 - I10) 07/18/2024 Other Learning About Depression Screening material was printed Problem-Based Assessment and Plan Eliceo, a 54-year-old single male with a history of hypertension and pancreatitis, presents with lifelong ADHD symptoms seeking re-diagnosis and medication management to improve productivity. Attention Deficit Hyperactivity Disorder (ADHD) Assessment: Patient reports a longstanding history of ADHD symptoms, including difficulty starting and finishing tasks, procrastination, burnout in jobs and school, problems paying attention to details, careless mistakes, and mind wandering. Family history significant for ADHD in uncles, brother, and sister. Previous diagnosis approximately 15 years ago, with trials of unspecified medication and Focalin (dexmethylphenidate ) 220 mg, which were discontinued due to side effects including hand tremors and lightheadedness. Patient reports some benefit from Focalin towards the end of the trial. No current treatment for ADHD. Given the patient's history and reported symptoms, ADHD remains a likely diagnosis, pending formal testing. Plan: - Schedule in-house ADHD testing within the next few weeks - Follow-up appointment one week after testing - Obtain vital signs at next visit - Perform urine drug screen at next visit - Consider initiating atomoxetine (non-stimulant) pending test results: - Target dose: 80 mg - Duration: 3-4 weeks before assessing efficacy - Patient educated on slower onset of action compared to stimulants - Informed about potential for morning or evening dosing - Advised about 24-hour coverage and reduced impact of missed doses - Discussed potential alternative medication (Qelbree) if atomoxetine is ineffective Hypertension Assessment: Patient reports a history of hypertension, currently managed with medication. Plan: - Continue current antihypertensive medications: - Amlodipine 5 mg - Lisinopril 5 mg Disclaimer: This note has been transcribed using speech recognition software and serves as a reflection of the patient's visit. While efforts have been made to ensure accuracy, there may be errors, including security ambassador inaccuracies and misspellings of medication names. This document should not be considered a verbatim record, and any discrepancies should be verified with the provider. 08/05/2024 Marisa Jefferson, a 54-year-old male with a history of ADHD and hypertension, presents for reevaluation of ADHD and to explore medication options. Attention Deficit Hyperactivity Disorder (ADHD) Assessment: Patient reports lifelong struggle with ADHD symptoms, diagnosed approximately 15 years ago. Symptoms include difficulty with attention, task initiation and completion, easy distractibility, mind-wandering during activities, and making careless mistakes in academic settings. Adult Self-Rating Scale results indicate mild inattentive ADHD, with scores above the threshold of 3 in 4 components. Patient specifically reports trouble wrapping up details, difficulty getting things in order, declining organization, issues remembering appointments/obliga tions, and inability to get things started. No impulsivity noted. Overall reaction time is within normal limits. Patient denies depression or anxiety. Plan: - Initiate atomoxetine (non-stimulant medication) for ADHD treatment - Start with 25 mg daily for 1 week, then increase to 40 mg daily - Provided two prescriptions: 25 mg (7 capsules) and 40 mg (30 capsules) - Instruct patient not to start both dosages simultaneously - Advise taking medication in the evening initially - Can be moved to daytime if sleep disturbances occur - Educate patient on potential side effects: - Possible increase in blood pressure - Loss of appetite (recommend good breakfast) - Potential upset stomach (manage with standard remedies) - Inform patient about expected onset of action (2-3 weeks) and gradual improvement - Schedule follow-up appointment in 4 weeks to assess medication efficacy and tolerability Hypertension Assessment: Patient has a history of hypertension, currently managed with amlodipine and dysnephro (likely meant hydrochlorothiazide ). Blood pressure is stable on current regimen. Plan: - Continue current antihypertensive medications (amlodipine and presumed hydrochlorothiazide ) - Monitor blood pressure closely due to potential effects of ADHD medication - If blood pressure increases, consider referral to primary care for adjustment of antihypertensive medications - Discontinue ADHD medication if blood pressure becomes uncontrolled despite adjustments Disclaimer: This note has been transcribed using speech recognition software and serves as a reflection of the patient's visit. While efforts have been made to ensure accuracy, there may be errors, including security ambassador inaccuracies and misspellings of medication names. This document should not be considered a verbatim record, and any discrepancies should be verified with the provider. 08/26/2024 Other Problem-Based Assessment and Plan Sheldon Jefferson, an adult male with suspected ADHD, presents for follow-up after starting atomoxetine 3-4 weeks ago, reporting no significant improvement in symptoms. Attention Deficit Hyperactivity Disorder (ADHD) Assessment: Patient reports no significant improvement in ADHD symptoms after 3-4 weeks on atomoxetine 40 mg daily. He notes a slight dry mouth as the only side effect. The patient's ADHD test results showed 3 component positive and part A as 4, though he subjectively reports more symptoms than the test detected. 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 The patient's current dose of atomoxetine is considered low, and an increase may be necessary to achieve therapeutic effect. Plan: - Increase atomoxetine to 60 mg PO daily for 2 weeks - Further increase atomoxetine to 80 mg PO daily after 2 weeks on 60 mg - Patient informed about the slow-acting nature of atomoxetine and the need to be on 80 mg for about 3 weeks to assess full effect - Retain remaining 40 mg tablets for potential use in dose adjustments or tapering if needed - Follow-up appointment in approximately 5 weeks to assess response to increased dose - Continue to monitor for side effects and efficacy Disclaimer: This note has been transcribed using speech recognition software and serves as a reflection of the patient's visit. While efforts have been made to ensure accuracy, there may be errors, including security ambassador inaccuracies and misspellings of medication names. This document should not be considered a verbatim record, and any discrepancies should be verified with the provider. Plan Of Treatment Future Test Test Name Order Date ADHD Testing 09/30/2024 Next Appt Details Provider Name:Kulwinder Ceja , 11/18/2024 02:00:00 PM, [address], [facility] [address], [place], [address], Provider Name:Kulwinder Ceja , 12/02/2024 01:00:00 PM, [address], [facility] [address], [place], [address], Insurance Providers Payer Name Payer Address Payer Phone Subscriber Number Group Number Insured Name Patient Relationship to Insured Coverage Start Date Coverage End Date [facility] [address] [place] [phone] [id number] SHELDON JEFFERSON Self - patient is the insured Medical (General) History Medical History History ICD Code hypertension: Yes Parkinson's disease: No Attention-deficit/hyperactivity disorder (adhd), diagnosed 15 years ago Hypertension, currently managed with med [facility] Pancreatitis, hospitalized in 2020 Hospitalization History Reason Date(Month/Year) Pancreatitis, [facility], 2020
[2024-11-06 13:37] VITALS: BP 134/87; PULSE 86; TEMP 37; O2SAT 99
--- NOTE | 2024-11-06 13:44 | ED_ITS ---
HPI - Eye Problem General Chief complaint: Eye Problems Stated complaint: L eye pain, possible dirt in the eye yesterday Time Seen by Provider: 11/06/24 13:45 Focused HPI: Patient is a 54-year-old male who presents to the ER with left eye irritation. He reports he thinks he got dust in his left eye yesterday. Patient endorses ongoing irritation and watering. He reports he has tried to flush his eyes multiple times. Patient denies any medical history relevant to this ER visit. He denies any visual changes, headache, or mastoid tenderness. GENERAL: Well-appearing, well-nourished, and in no acute distress. HEAD: Normocephalic, left eye slight redness, no visible discharge. CHEST: Clear to auscultation. ?No respiratory distress. HEART: Regular rate and rhythm.? NEURO: ?Alert and oriented x3. Patient screened in triage and initial orders placed.? ?Additional care and disposition to be based upon?diagnostic testing and treatment. Related Data Allergies Allergy/AdvReac Type Severity Reaction Status Date / Time codeine AdvReac Nausea Verified 11/06/24 11:20 [facility] Past Medical History Medical History No significant past medical history Surgical History Surgical History No history of previous surgery Family History Family History Mother Diabetes mellitus Heart disease Hypertension Other No significant family history Social History Social History Social History: The patient lives in [place]. Works at [employer]. Lifelong nonsmoker. No alcohol or illicit substance abuse. Surrogate decision maker: Mejia Jefferson, father. Code status: Full code. Smoking status: Never smoker Alcohol intake: never Substance use: never Substance use type: does not use Lack of Transportation: No Lack of Food: Never True Current Housing: I Have Housing Concerned About Future Housing: No Difficulty Paying Gas/Electric Bills: No Difficulty Paying for Meds: No Currently Unemployed: No Difficulty w/ Childcare or Family Care: No Living arrangements: with family Additional living arrangements comments: Parents Occupation/Education: occupation Gender identity (if verbalized by the patient): Male Course Vital Signs Vital signs: Vital Signs Temperature 36.6 C 11/06/24 11:18 Pulse Rate 81 11/06/24 11:18 Respiratory Rate 18 11/06/24 11:18 Blood Pressure 133/89 11/06/24 11:18 Pulse Oximetry 97 11/06/24 11:18 Temperature 37.0 C 11/06/24 13:37 Pulse Rate 86 11/06/24 13:37 Respiratory Rate 18 11/06/24 11:18 Blood Pressure 134/87 11/06/24 13:37 Pulse Oximetry 99 11/06/24 13:37 Discharge Plan Discharge Clinical Impression: Abrasion, corneal Patient Disposition: Home Condition: Stable Instructions: Antibiotic Form, Corneal Abrasion (ED) Patient Language: Chinese Prescriptions: New gentamicin 0.3 % drops 1 drp LEFT EYE Q4H Qty: 5 0RF No Action Jessie-D 24 Hour 180-240 mg tablet extended release 24 hr See Rx Instructions .ROUTE .COMPLEX Qty: 30 3RF Dose Instruction: TAKE 1 TABLET BY MOUTH ONCE DAILY IN THE MORNING NEEDED FOR ALLERGIES Rx Instructions: TAKE 1 TABLET BY MOUTH ONCE DAILY IN THE MORNING NEEDED FOR ALLERGIES lisinopril 5 mg tablet 5 mg PO DAILY Qty: 90 1RF amlodipine 5 mg tablet See Rx Instructions .ROUTE .COMPLEX Qty: 180 1RF Dose Instruction: TAKE 2 TABLETS BY MOUTH EVERY MORNING Rx Instructions: TAKE 2 TABLETS BY MOUTH EVERY MORNING Follow-up/Referrals: [facility] [Outside] Dinorah Wynn DO [Primary Care Provider] -
--- NOTE | 2024-11-06 15:29 | ED.EYEPROB ---
HPI - Eye Problem General Chief complaint: Eye Problems Stated complaint: L eye pain, possible dirt in the eye yesterday Time Seen by Provider: 11/06/24 13:45 History of Present Illness HPI Narrative: Pt presents with discomfort in left eye. Pt thinks he may have gotten some dust in it. Pt does not grind metal or weld. Pt has some mild photophobia but denies visual changes. Related Data Allergies Allergy/AdvReac Type Severity Reaction Status Date / Time codeine AdvReac Nausea Verified 11/06/24 11:20 Review of Systems Review of Systems: All systems reviewed & are unremarkable except as noted in HPI and below PMFSH Past Medical History Medical History No significant past medical history Surgical History Surgical History No history of previous surgery Family History Family History Mother Diabetes mellitus Heart disease Hypertension Other No significant family history Social History Social History Social History: The patient lives in [place]. Works at [employer]. Lifelong nonsmoker. No alcohol or illicit substance abuse. Surrogate decision maker: Mejia Jefferson, father. Code status: Full code. Smoking status: Never smoker Alcohol intake: never Substance use: never Substance use type: does not use Lack of Transportation: No Lack of Food: Never True Current Housing: I Have Housing Concerned About Future Housing: No Difficulty Paying Gas/Electric Bills: No Difficulty Paying for Meds: No Currently Unemployed: No Difficulty w/ Childcare or Family Care: No Living arrangements: with family Additional living arrangements comments: Parents Occupation/Education: occupation Gender identity (if verbalized by the patient): Male Exam Const: General: healthy appearing and no acute distress Nutritional Appearance: well nourished Limitations: no limitations Eyes: Conjunctivae: conjunctival abnormality left conjunctival injection; without discharge Pupils: Equal, round and reactive pupils present EOM: EOMs intact bilaterally Direct Ophthalmoscopy: photophobia Neck: Neck: no lymphadenopathy and no meningeal signs Course Vital Signs Vital signs: Vital Signs Temperature 97.8 F 11/06/24 11:18 Pulse Rate 81 11/06/24 11:18 Respiratory Rate 18 11/06/24 11:18 Blood Pressure 133/89 11/06/24 11:18 Pulse Oximetry 97 11/06/24 11:18 Temperature 98.6 F 11/06/24 13:37 Pulse Rate 86 11/06/24 13:37 Respiratory Rate 18 11/06/24 11:18 Blood Pressure 134/87 11/06/24 13:37 Pulse Oximetry 99 11/06/24 13:37 Procedures Other Procedure Procedure 1: Other Procedure: tetracaine applied and fluorescein and slit lamp exam reveals small abrasion but no fb noted. pupil reactive. so doubt glaucaoma MDM - Eye Problem MDM Narrative Medical decision making narrative: Pt has fb sensation in left eye. pt has small abrasion on slit lamp exam, no fb. home on antibiotics and optho referral if not improved. Discharge Plan Discharge Clinical Impression: Abrasion, corneal Patient Disposition: Home Condition: Stable Instructions: Antibiotic Form, Corneal Abrasion (ED) Patient Language: Bahraini Prescriptions: New gentamicin 0.3 % drops 1 drp LEFT EYE Q4H Qty: 5 0RF No Action Jessie-D 24 Hour 180-240 mg tablet extended release 24 hr See Rx Instructions .ROUTE .COMPLEX Qty: 30 3RF Dose Instruction: TAKE 1 TABLET BY MOUTH ONCE DAILY IN THE MORNING NEEDED FOR ALLERGIES Rx Instructions: TAKE 1 TABLET BY MOUTH ONCE DAILY IN THE MORNING NEEDED FOR ALLERGIES lisinopril 5 mg tablet 5 mg PO DAILY Qty: 90 1RF amlodipine 5 mg tablet See Rx Instructions .ROUTE .COMPLEX Qty: 180 1RF Dose Instruction: TAKE 2 TABLETS BY MOUTH EVERY MORNING Rx Instructions: TAKE 2 TABLETS BY MOUTH EVERY MORNING Follow-up/Referrals: [facility] [Outside] Dinorah Wynn DO [Primary Care Provider] -
== END 2024-11-06 16:03 | disposition home or self-care (01) ==
LOC: ANHED 15:45
PROVIDERS: Emergency Provider Emergency Medicine; PCP Family Medicine
DX: S05.02XA Injury of conjunctiva and corneal abrasion without foreign body, left eye, initial encounter (principal); X58.XXXA Exposure to other specified factors, initial encounter
CPT/HCPCS: 99283; A9270